=== PATIENT | male | born 1985 | race African-American/Black ===

== ENCOUNTER 2016-10-25 18:10 | Emergency (ER) | payer SELFPAY ==
[2016-10-25 18:14] VITALS: BP 134/78; PULSE 95; TEMP 98.4; BMI 24.4
[2016-10-25] MEDS ORDERED: ONDANSETRON *ODT* 4 MG TABLET SL ONE (19:36)
[2016-10-25] MEDS ORDERED: CLINDAMYCIN HCL 150 MG CAPSULE (FP) PO ONE (19:36)
--- NOTE | 2016-10-25 19:41 | PDOC ---
History of Present Illness - General Chief Complaint: Abscess Boil Stated Complaint: ABSCESS BOIL Time Seen by Provider: 10/25/16 19:26 History Source: Patient Exam Limitations: No Limitations - History of Present Illness Initial Comments: 10/25/16 19:36 31-year-old male presents to the ED with complaints of right buttock abscess which he states started on Friday and has been applying an athlete cream to the area thinking it was just a pimple stating minimal relief. Patient states has had these in the past which normally responds to this. Patient denies history of MRSA, immunosuppression, or skin disorders. He denies fever, chills, dizziness, or weakness. Patient does state mild nausea since yesterday. Patient denies abdominal pain. Patient denies change in appetite. Timing/Duration: reports: other (3 days) Severity: Yes: mild Location: reports: genitalia Respiratory Risk Factors: reports: no cause identified Associated Symptoms: reports: swelling/mass/lumps (left buttock ), other ( redness to right buttock) Past History - Travel Traveled outside of the country in the last 30 days: No Close contact w/someone who was outside of country & ill: No - Past Medical History Allergies/Adverse Reactions: Allergies Allergy/AdvReac Type Severity Reaction Status Date / Time Sulfa (Sulfonamide Allergy Mild gi Verified 10/25/16 18:12 Antibiotics) distress. Home Medications: Ambulatory Orders NK [No Known Home Medication] 08/08/15 Other medical history: DENIES. - Psycho/Social/Smoking Cessation Hx Anxiety: No Suicidal Ideation: No Smoking History: Never smoked Hx Alcohol Use: No Drug/Substance Use Hx: No Substance Use Type: None Patient Lives Alone: No Lives with/in: spouse/SO Review of Systems - Review of Systems Able to Perform ROS?: Yes Constitutional: No: Symptoms Reported HEENTM: No: Symptoms Reported Respiratory: No: Symptoms reported Cardiac (ROS): No: Symptoms Reported ABD/GI: Yes: Nausea : No: Symptoms Reported Musculoskeletal: No: Symptoms Reported Integumentary: Yes: Erythema, Lumps Neurological: No: Symptoms reported Endocrine: No: Symptoms Reported Hematologic/Lymphatic: No: Symptoms Reported *Physical Exam - Vital Signs Last Vital Signs Temp Pulse Resp BP Pulse Ox 98.4 F 95 H 18 134/78 99 10/25/16 18:11 10/25/16 18:11 10/25/16 18:11 10/25/16 18:11 10/25/16 18:11 - Physical Exam General Appearance: Yes: Nourished, Appropriately Dressed. No: Apparent Distress Gastrointestinal/Abdominal: positive: Soft. negative: Tenderness Male Genitalia: positive: other (noted semifirm nonfluctulant area measuring 3cm x 1cm to right buttock. No increased warmth). negative: testicular tenderness, testicular mass Extremity: negative: Erythema Integumentary: positive: Normal Color, Warm, Moist Neurologic: positive: Motor Strength 5/5 (ambulatory) Medical Decision Making - Medical Decision Making 10/25/16 19:41 Patient with early abscess to the right buttock. Patient has no palpable fluctuance. Patient will be given a dose of clindamycin here in the ER and states has Motrin at home. Patient also states gets nauseous with clindamycin and requesting something for nausea. 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 Please apply hot soaks to the affected area 4 times a day for at least 15 minutes of direct heat. Please take Motrin as needed for discomfort and may take Zofran as needed for nausea
[2016-10-25] MEDS ORDERED: ONDANSETRON *ODT* 4 MG TABLET ONE (19:55)
== END 2016-10-25 20:03 | disposition home or self-care (01) ==
LOC: SUPCPDRO 18:10 → JERFT 18:10
DX: L02.31 Cutaneous abscess of buttock (principal)
CPT/HCPCS: 99281-25

== ENCOUNTER 2018-06-08 22:49 | Emergency (ER) | payer SELFPAY ==
[2018-06-08 22:53] VITALS: BP 137/80; PULSE 99; TEMP 100.3; BMI 29.4
[2018-06-08] MEDS ORDERED: ACETAMINOPHEN 325 MG TABLET (FP) PO ONE (23:58)
--- NOTE | 2018-06-09 00:06 | PDOC ---
History of Present Illness - General Chief Complaint: Cold Symptoms Stated Complaint: FEVER Time Seen by Provider: 06/08/18 23:27 - History of Present Illness Initial Comments: Dejon Hawk is an otherwise healthy 33yo man who presents with fever to 101.3 , cough, vomiting, and headache since yesterday. He reports that his symptoms started with the cough last night, and he has been taking acetaminophen and ibuprofen "around the clock" for fever today. He took acetaminophen 2 tablets 3 times earlier, 2 tabs of ibuprofen around 8:30pm. He did not have any additional symptoms until this afternoon, when he had 2 episodes of NBNB vomiting. Currently, he also endorses a frontal headache. 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 He did not get a flu shot this year, saying that he never does. Past History - Past Medical History Allergies/Adverse Reactions: Allergies Allergy/AdvReac Type Severity Reaction Status Date / Time Sulfa (Sulfonamide Allergy Mild gi Verified 06/08/18 22:53 Antibiotics) distress. Home Medications: Ambulatory Orders Clindamycin [Cleocin -] 300 mg PO TID #21 capsule 10/25/16 Ibuprofen [Motrin -] 600 mg PO TID PRN #21 tablet 10/25/16 Ondansetron HCl [Zofran] 4 mg PO TID PRN #12 tablet 10/25/16 Benzonatate [Tessalon Pearls -] 100 mg PO TID #21 capsule 06/09/18 Ondansetron HCl [Zofran] 4 mg PO TID PRN #12 tablet 06/09/18 COPD: No - Suicide/Smoking/Psychosocial Hx Smoking History: Never smoked Have you smoked in the past 12 months: No Information on smoking cessation initiated: No Hx Alcohol Use: No Drug/Substance Use Hx: No Substance Use Type: None Review of Systems - Review of Systems Comments:: General: +fever, no chills, no weight or appetite change, no malaise HEENT: No changes in vision, no changes in hearing, no congestion, no sore throat, +headache CV: No chest pain, no palpitations, no LE edema Pulm: No SOB, +cough, no wheezing GI: +Vomiting, no change in bowel habits, no melena : No frequency, no urgency, no dysuria Musc: No back pain, no joint swelling, no recent injury Skin: No rash, no lesions, no erythema Endo: No excessive thirst, no heat/cold intolerance Heme: No unusual bruising or bleeding, no swollen glands Neuro: No syncope, no numbness/tingling, no focal weakness Vasc: No claudication Psych: No recent change in mood, no SI or HI *Physical Exam - Vital Signs Last Vital Signs Temp Pulse Resp BP Pulse Ox 100.3 F H 99 H 18 137/80 97 06/08/18 22:50 06/08/18 22:50 06/08/18 22:50 06/08/18 22:50 06/08/18 22:50 - Physical Exam Comments: General: Comfortable, no acute distress HEENT: PERRL, EOMI, MMM, voice normal, normal neck ROM, no LAD, no sinus tenderness Cards: RRR, no murmur appreciated Pulm: Comfortable on room air, clear to auscultation bilaterally, dry cough observed Abd: Soft, nontender, nondistended Ext: Atraumatic. No LE edema. ROM intact. Strength 5/5 and equal bilaterally Vasc: Extremities WWP. Palpable radial and pedal pulses bilaterally Skin: Normal color, no rashes or lesions Neuro: A&Ox3, CN grossly intact, normal speech, motor/sensory grossly intact and symmetric, no focal deficits Psych: Mood appropriate to situation Moderate Sedation - Procedure Monitoring Vital Signs: Procedure Monitoring Vital Signs Temperature 100.3 F H 06/08/18 22:50 Pulse Rate 99 H 06/08/18 22:50 Respiratory Rate 18 06/08/18 22:50 Blood Pressure 137/80 06/08/18 22:50 O2 Sat by Pulse Oximetry (%) 97 06/08/18 22:50 Medical Decision Making - Medical Decision Making 06/09/18 00:07 Dejon Hawk is an otherwise healthy 33yo who works with 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 - Flu swab ordered - Acetaminophen for headache and elevated temperature 06/09/18 01:51 - Influenza negative - Most likely viral illness. Will discharge home with meds for cough, nausea. Discussed use of acetaminophen, ibuprofen PRN for pain or fever. Discussed use of OTC decongestants. Pt states understanding. - Will give note to stay home from work until symptoms resolve as he works with small children. Discussed with . Martine Phillips PGY1 *DC/Admit/Observation/Transfer Diagnosis at time of Disposition: Viral URI with cough - Discharge Dispostion Disposition: HOME Condition at time of disposition: Stable Decision to Admit order: No - Prescriptions Prescriptions: Benzonatate [Tessalon Pearls -] 100 mg PO TID #21 capsule Ondansetron HCl [Zofran] 4 mg PO TID PRN #12 tablet PRN Reason: Nausea And/Or Vomiting - Referrals Ref[facility]: [facility] [place] [Provider Group] - Patient Instructions Printed Discharge Instructions: DI for Viral Upper Respiratory Infection -- Adult Additional Instructions: Discharge Instructions: You were seen in the emergency department with a fever, cough, and vomiting. You were tested for influenza (flu) but this was negative. Your illness is most likely caused by a virus and will resolve with time. Home Care: - You may take acetaminophen (Tylenol) 650-1000mg every 6-8 hours or ibuprofen ( Advil, Motrin) 600-800mg every 6-8 hours as needed for fever or pain. If needed for continued fever/pain, these may be alternated every 3-4 hours - If you have congestion or sinus pressure, you can buy Sudafed at any pharmacy. This can be taken every 6 hours for congestion. - You have been prescribed a medication, tesslon perles, that can be used up to 3 times per day for cough - You have been prescribed another medication, zofran (ondansetron) that you can take up to three times per day for nausea/vomiting - You may wish to use a humidifier or sit near a hot shower to help with cough and chest congestion - Drink plenty of fluids such as water, clear juice, broth, or sports drinks. Do not be concerned if you are not able to eat much, but make sure you are staying hydrated. - You should not return to work until your symptoms resolve Follow Up: - If your symptoms do not improve within one week, follow up with a primary care doctor. You have been referred to the [facility] internal medicine resident clinic. - Seek immediate medical care if you develop difficulty breathing or shortness of breath, or if you have severe nausea that prevents you from eating or drinking anything. - Post Discharge Activity Forms/Work/School Notes: Back to Work
--- NOTE | 2018-06-09 00:10 | PDOC ---
Attending Attestation - HPI HPI: 06/09/18 00:12 The patient is a 33 year old male, with no significant past medical history, who presents to the emergency department with, 1 day of nausea, vomiting, cough , and headache. 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 He denies any recent fevers, chills, or dizziness. He denies any recent diarrhea or constipation. He denies any recent chest pain or shortness of breath. He denies any recent dysuria, frequency, urgency or hematuria. Allergies: Sulfa - Physicial Exam PE: 06/09/18 00:13 +GENERAL: Uncomfortably appearing, well-nourished. No apparent distress. +HEENT: Nasal congestion. Normocephalic, atraumatic. PERRL, EOM intact. CARDIOVASCULAR: Normal S1, S2. Regular rate and rhythm. PULMONARY: Clear to auscultation bilaterally. ABDOMEN: Soft, non-distended, non-tender. EXTREMITIES: Normal ROM in all four extremities. No gross deformities. SKIN: Warm, dry. No rash NEUROLOGICAL: No focal neurological deficits. <Larry Genao - Last Filed: 06/09/18 00:12> - Resident Resident Name: Martine Phillips - ED Attending Attestation I have performed the following: I have examined & evaluated the patient, The case was reviewed & discussed with the resident, I agree w/resident's findings & plan, Exceptions are as noted - Medical Decision Making 06/09/18 00:31 33 yo male with 1 day illness of fever,cough,nausea,nasal congestion and vomiting. 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 <Larry Genao - Last Filed: 06/09/18 00:12>
[2018-06-09] MEDS ORDERED: ACETAMINOPHEN 325 MG TABLET (FP) ONE (00:31)
[2018-06-09] MEDS ORDERED: IBUPROFEN 400 MG TABLET (FP) PO ONE ×2 (01:38→01:49)
== END 2018-06-09 02:09 | disposition home or self-care (01) ==
LOC: JER 22:49
DX: J06.9 Acute upper respiratory infection, unspecified (principal); B97.89 Other viral agents as the cause of diseases classified elsewhere
CPT/HCPCS: 87804; 99281-25

== ENCOUNTER 2018-11-12 20:35 | Emergency (ER) | payer SELFPAY ==
[2018-11-12 20:45] VITALS: BP 127/75; PULSE 65; TEMP 98.9; BMI 30.7
--- NOTE | 2018-11-12 20:53 | PDOC ---
Rapid Medical Evaluation Chief Complaint: Wound Time Seen by Provider: 11/12/18 20:41 Medical Evaluation: Allergies Allergy/AdvReac Type Severity Reaction Status Date / Time Sulfa (Sulfonamide Allergy Mild gi Verified 06/08/18 22:53 Antibiotics) distress. 11/12/18 20:43 I have performed a brief in-person evaluation of this patient. The patient presents with a chief complaint of: inflammation/ pain to lower right scalp- started 5 days ago, has had mass all the time, but has never caused facial swelling / pain- Pertinent physical exam findings: tender swollen mass to upper right temporal area I have ordered the following: nothing The patient will proceed to the ED for further evaluation. 11/12/18 21:29 11/12/18 21:46 Discharge Disposition - Diagnosis Abscess - Referrals - Patient Instructions - Post Discharge Activity
[2018-11-12 22:27] LABS: BASO % 0.4 % (0-2.0); EOS % 3.5 % (0-4.5); HEMATOCRIT 41.5 % (35.4-49); HEMOGLOBIN 13.7 GM/dL (11.7-16.9); LYMPH % 24.6 % (8-40); MCH 27.3 pg (25.7-33.7); MCHC 33.1 g/dl (32.0-35.9); MEAN CELL VOLUME 82.5 fl (80-96); MEAN PLT VOLUME 8.8 fl (7.5-11.1); MONO % 15.1 % (3.8-10.2); NEUT % 56.4 % (42.8-82.8); PLATELET COUNT 227 K/MM3 (134-434); RBC 5.03 M/mm3 (4.00-5.60); RDW 14.4 % (11.9-15.9); WHITE BLOOD COUNT 10.5 K/mm3 (4.0-10.0)
[2018-11-12 22:34] LABS: BLOOD UREA NITROGEN 19.3 mg/dL (7-18); CREATININE 1.2 mg/dL (0.55-1.3); POTASSIUM 4.2 mmol/L (3.5-5.1)
== END 2018-11-12 22:15 | disposition left against medical advice (07) ==
LOC: JER 20:35
DX: L02.01 Cutaneous abscess of face (principal)
CPT/HCPCS: 36415; 80048; 85025; 99281-25

== ENCOUNTER 2018-11-14 17:22 | Emergency (ER) | payer SELFPAY ==
[2018-11-14 17:32] VITALS: BP 116/78; PULSE 82; TEMP 98.5; BMI 30.7
--- NOTE | 2018-11-14 18:06 | PDOC ---
History of Present Illness - General Chief Complaint: Edema Stated Complaint: TO BE SEEN Time Seen by Provider: 11/14/18 17:31 History Source: Patient (R temporal bone mass X 1wk) Exam Limitations: No Limitations - History of Present Illness Associated Symptoms: denies: fever/chills Past History - Travel Traveled outside of the country in the last 30 days: No Close contact w/someone who was outside of country & ill: No - Past Medical History Allergies/Adverse Reactions: Allergies Allergy/AdvReac Type Severity Reaction Status Date / Time Sulfa (Sulfonamide Allergy Mild gi Verified 11/14/18 17:36 Antibiotics) distress. Home Medications: Ambulatory Orders Clindamycin [Cleocin -] 150 mg PO Q8H #21 capsule 11/14/18 Ibuprofen 800 mg PO ACDIN 7 Days #21 tablet 11/14/18 COPD: No - Suicide/Smoking/Psychosocial Hx Smoking History: Never smoked Have you smoked in the past 12 months: No Information on smoking cessation initiated: No Hx Alcohol Use: No Drug/Substance Use Hx: No Substance Use Type: None Review of Systems - Review of Systems Is the patient limited Persian proficient: No Constitutional: No: Chills, Fever Integumentary: Yes: Lumps (Right temporal bone) Neurological: No: Headache, Numbness, Paresthesia, Tingling, Weakness, Unsteady Gait, Ataxia, Dizziness *Physical Exam - Vital Signs Last Vital Signs Temp Pulse Resp BP Pulse Ox 98.5 F 82 20 116/78 98 11/14/18 17:29 11/14/18 17:29 11/14/18 17:29 11/14/18 17:29 11/14/18 17:29 - Physical Exam General Appearance: Yes: Nourished HEENT: positive: EOMI, MARTIN Integumentary: positive: Normal Color, Other (R temporal region: 3cm indurated area with fluctance noted, +tender to touch) 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 NML intact, Fully Oriented, Alert, Normal Mood/ Affect, Normal Response, Motor Strength 5/5 Procedures - Incision and Drainage I&D Site: Left: Other (left temporal region of scalp) Betadine cleansed: Yes Anesthesia: 2% Lidocaine Blade Size: 11 Plain Packing: No Complications: none Dressing: Yes ED Treatment Course - RADIOLOGY Radiology Studies Ordered: Category Date Time Status TEMPORAL BONES CT W/O CONTRAST [CT] Stat CT Scan 11/14/18 18:01 Ordered Medical Decision Making - Medical Decision Making 11/14/18 18:05 33y/o M with lump to R temporal region X 1wk UTD with tetanus presented on 11/12/18 for evaluation but left before workup was completed d/t family emergency Pt is here today, denies BUTLER, visual disturbance, fever reports it started like a pimple 11/14/18 19:35 I& D with moderate amount of purulent discharge expressed unable to pack area due to tissue swelling continuous warm compresses advised wound cx sent abx to pharmacy CT negative 11/14/18 19:58 *DC/Admit/Observation/Transfer Diagnosis at time of Disposition: Abscess - Discharge Dispostion Disposition: HOME Condition at time of disposition: Stable Decision to Admit order: No - Prescriptions Prescriptions: Clindamycin [Cleocin -] 150 mg PO Q8H #21 capsule Ibuprofen 800 mg PO ACDIN 7 Days #21 tablet - Referrals - Patient Instructions Printed Discharge Instructions: DI for Skin Abscess Additional Instructions: Your CT today negative for normal today Apply warm compress to area at least 3 times a day take antibiotics as prescribed Follow up with your PCP for wound check in 2 days Return to ER if worsening pain, fever,redness or swelling occurs - Post Discharge Activity
[2018-11-14] MEDS ORDERED: IBUPROFEN 400 MG TABLET (FP) PO ONE ×2 (19:27→19:33)
== END 2018-11-14 20:03 | disposition home or self-care (01) ==
LOC: JERFT 17:22
PROC: 0J910ZZ Drainage of Face Subcutaneous Tissue and Fascia, Open Approach (ICD-10-PCS; principal; 2018-11-14)
DX: L02.01 Cutaneous abscess of face (principal)
CPT/HCPCS: 70480-TC; 87070; 87076; 87077; 87205; 99282-25

== ENCOUNTER 2023-01-27 16:16 | Inpatient (IN) | payer OTHER ==
[2023-01-27] MEDS ORDERED: SODIUM CHLORIDE 1,000 ML IV ONE ×2 (16:53→18:01)
[2023-01-27 17:26] LABS: BASO % 0.5 % (0-2.0); EOS % 2.3 % (0-4.5); HEMATOCRIT 42.7 % (35.4-49); HEMOGLOBIN 14.3 GM/dL (11.7-16.9); LYMPH % 23.2 % (8-40); MCH 27.1 pg (25.7-33.7); MCHC 33.5 g/dl (32.0-35.9); MEAN PLT VOLUME 9.2 fl (7.5-11.1); MONO % 9.2 % (3.8-10.2); NEUT % 64.8 % (42.8-82.8); PH,URINE 5.5 (5.0-8.0); PLATELET COUNT 248 10^3/uL (134-434); RBC 5.27 M/mm3 (4.00-5.60); URINE APPEARANCE CLEAR; URINE BILIRUBIN NEGATIVE (NEGATIVE); URINE COLOR YELLOW; URINE GLUCOSE (UA) 3+ (NEGATIVE); URINE KETONE NEGATIVE (NEGATIVE); URINE LEUK ESTERASE NEGATIVE (NEGATIVE); URINE NITRITE NEGATIVE (NEGATIVE); URINE PROTEIN NEGATIVE (NEGATIVE); URINE UROBILINOGEN 0.2 mg/dL (0.2-1.0); WHITE BLOOD COUNT 11.6 K/mm3 (4.0-10.0)
[2023-01-27 17:41] LABS: VENOUS BASE EXCESS -1.5 mmol/L (-2-2); VENOUS O2 SATURATION 93.4 % (70-80); VENOUS PCO2 39.8 mmHg (38-52); VENOUS PH 7.386 (7.310-7.410)
[2023-01-27 17:47] LABS: CHLORIDE 96 mmol/L (98-107); POTASSIUM 4.6 mmol/L (3.5-5.1); SODIUM 130 mmol/L (136-145)
[2023-01-27 17:50] LABS: ALBUMIN 3.8 g/dl (3.4-5.0); ANION GAP 8 MMOL/L (8-16); BLOOD UREA NITROGEN 19.3 mg/dL (7-18); CALCIUM 9.3 mg/dL (8.5-10.1); CO2 26 mmol/L (21-32)
[2023-01-27 17:52] LABS: SGPT/ALT 34 U/L (13-61)
[2023-01-27 17:53] LABS: CREATININE 1.6 mg/dL (0.55-1.3); SGOT/AST 11 U/L (15-37)
[2023-01-27 17:54] LABS: BILIRUBIN,TOTAL 0.3 mg/dL (0.2-1); TOT PROT 9.3 g/dl (6.4-8.2)
[2023-01-27 17:55] LABS: ALK PHOS 259 U/L (45-117)
[2023-01-27 18:06] LABS: GLUCOSE,RANDOM 735 mg/dL (74-106)
[2023-01-27] MEDS ORDERED: SODIUM CHLORIDE 1,000 ML IV SCH (21:30)
[2023-01-27] MEDS: SODIUM CHLORIDE 1,000 ML IV SCH (21:55)
[2023-01-27] MEDS ORDERED: HEPARIN NA (PORCINE) 5,000 UNITS/ML 1ML VIAL ONE (22:18)
[2023-01-27] MEDS: HEPARIN NA (PORCINE) 5,000 UNITS/ML 1ML VIAL SQ SCH (22:25)
[2023-01-27] MEDS: INSULIN (LEVEMIR) 100 UNITS/ML UNITS SQ SCH (23:24)
[2023-01-28] MEDS ORDERED: SODIUM CHLORIDE 1,000 ML IV STA (06:55)
[2023-01-28] MEDS ORDERED: INSULIN SLIDING SCALE (NOVOLOG) 1 VIAL SQ SCH (07:00)
[2023-01-28] MEDS: INSULIN SLIDING SCALE (NOVOLOG) 1 VIAL SQ SCH ×4 (07:48→21:39)
[2023-01-28 08:12] LABS: POTASSIUM 4.4 mmol/L (3.5-5.1)
[2023-01-28 08:21] LABS: BLOOD UREA NITROGEN 13.2 mg/dL (7-18); CALCIUM 8.5 mg/dL (8.5-10.1)
[2023-01-28 08:23] LABS: BASO % 0.6 % (0-2.0); EOS % 4.6 % (0-4.5); HEMATOCRIT 40.4 % (35.4-49); HEMOGLOBIN 13.6 GM/dL (11.7-16.9); LYMPH % 24.4 % (8-40); MCH 27.4 pg (25.7-33.7); MCHC 33.6 g/dl (32.0-35.9); MEAN CELL VOLUME 81.7 fl (80-96); MEAN PLT VOLUME 9.8 fl (7.5-11.1); MONO % 8.6 % (3.8-10.2); NEUT % 61.8 % (42.8-82.8); PLATELET COUNT 222 10^3/uL (134-434); RBC 4.94 M/mm3 (4.00-5.60); RDW 12.9 % (11.9-15.9); WHITE BLOOD COUNT 9.7 K/mm3 (4.0-10.0)
[2023-01-28 08:25] LABS: BILIRUBIN,TOTAL 0.6 mg/dL (0.2-1); CREATININE 1.1 mg/dL (0.55-1.3)
[2023-01-28 08:28] LABS: TOT PROT 7.5 g/dl (6.4-8.2)
[2023-01-28] MEDS ORDERED: HEPARIN NA (PORCINE) 5,000 UNITS/ML 1ML VIAL ONE (09:25)
[2023-01-28] MEDS: HEPARIN NA (PORCINE) 5,000 UNITS/ML 1ML VIAL SQ SCH ×2 (09:35→21:40)
[2023-01-28 10:51] VITALS: RESP 18
[2023-01-28] MEDS ORDERED: INSULIN (NOVOLOG) ASPART 100 UNITS/ML 10ML VIAL ONE ×3 (12:00→21:30)
[2023-01-28] MEDS: SODIUM CHLORIDE 1,000 ML IV SCH ×2 (15:36→23:17)
[2023-01-28] MEDS: INSULIN (LEVEMIR) 100 UNITS/ML UNITS SQ SCH (21:40)
[2023-01-29] MEDS: INSULIN SLIDING SCALE (NOVOLOG) 1 VIAL SQ SCH ×2 (06:44→12:03)
[2023-01-29] MEDS ORDERED: metFORMIN HCL 500 MG TABLET (FP) PO SCH (07:00)
[2023-01-29] MEDS: HEPARIN NA (PORCINE) 5,000 UNITS/ML 1ML VIAL SQ SCH ×2 (10:17→10:19)
[2023-01-29] MEDS ORDERED: INSULIN (NOVOLOG) ASPART 100 UNITS/ML 10ML VIAL ONE (12:01)
[2023-01-29 14:15] VITALS: BP 125/74; PULSE 66; TEMP 98.4
[2023-01-29 15:36] VITALS: BMI 31.6
== END 2023-01-29 14:50 | disposition home or self-care (01) | DRG 420 ==
LOC: JER 16:16 → JERBED 19:32 → OBSVTOIN 21:02 → J8W 01-28 10:25
PROVIDERS: ADMIT Internal Medicine; ATTEND Nurse Practitioner Family
DX: E11.65 Type 2 diabetes mellitus with hyperglycemia (principal); N17.9 Acute kidney failure, unspecified; E86.0 Dehydration; R42 Dizziness and giddiness; R35.89 Other polyuria
CPT/HCPCS: 36415; 80053; 81003; 82010; 82803; 82962; 83036; 85025; 93005; 93010; 99285-25; G0378; J1644

== ENCOUNTER 2023-06-30 15:23 | Emergency (ER) | payer OTHER ==
[2023-06-30 15:46] VITALS: BP 118/74; PULSE 67; RESP 16; TEMP 97.7; BMI 26.0
== END 2023-06-30 18:03 | disposition home or self-care (01) ==
LOC: JERFT 15:23 → JER 15:23
DX: M79.672 Pain in left foot (principal); M77.42 Metatarsalgia, left foot
CPT/HCPCS: 73630-TC-LT; 99283-25

== ENCOUNTER 2024-01-06 16:37 | Emergency (ER) | payer OTHER ==
[2024-01-06 17:00] VITALS: BP 119/71; PULSE 77; RESP 18; TEMP 98.5; BMI 25.5
[2024-01-06] MEDS ORDERED: IBUPROFEN 400 MG TABLET (FP) PO ONE (18:50)
[2024-01-06] MEDS ORDERED: CEPHALEXIN MONOHYDRATE 500 MG CAPSULE (UD) ONE (18:50)
[2024-01-06] MEDS: CEPHALEXIN MONOHYDRATE 500 MG CAPSULE (UD) PO ONE (18:58)
[2024-01-06] MEDS: IBUPROFEN 400 MG TABLET (FP) PO ONE (18:58)
== END 2024-01-06 19:05 | disposition home or self-care (01) ==
LOC: JERFT 16:37
PROC: 0H90XZZ Drainage of Scalp Skin, External Approach (ICD-10-PCS; principal; 2024-01-06)
DX: L02.811 Cutaneous abscess of head [any part, except face] (principal)
CPT/HCPCS: 10060; 99283-25

== ENCOUNTER 2024-03-25 16:34 | Emergency (ER) | payer OTHER ==
[2024-03-25 16:46] VITALS: BP 126/68; PULSE 71; RESP 17; TEMP 98.8; BMI 25.9
== END 2024-03-25 18:36 | disposition home or self-care (01) ==
LOC: JERFT 16:34
PROC: 0H90XZZ Drainage of Scalp Skin, External Approach (ICD-10-PCS; principal; 2024-03-25)
DX: L02.811 Cutaneous abscess of head [any part, except face] (principal)
CPT/HCPCS: 99283-25

== ENCOUNTER 2024-03-30 16:09 | Emergency (ER) | payer OTHER ==
[2024-03-30 16:14] VITALS: BP 113/72; PULSE 66; RESP 20; TEMP 98.5; BMI 25.4
== END 2024-03-30 16:38 | disposition home or self-care (01) ==
LOC: JERFT 16:09
DX: Z48.00 Encounter for change or removal of nonsurgical wound dressing (principal)
CPT/HCPCS: 99281-25